=== PATIENT | female | born 1985 | race Caucasian/White ===

== ENCOUNTER → 2020-04-22 | Outpatient (CLI) | payer BC, OTHER ==
[~2020-04-22] MED LIST: BACTRIM DS TAB1 EACH PO; BENADRYL25 MG PO; IBU800 MG PO; KEFLEX500 MG PO; NORCO 5-325 TA1 EACH PO; OMNICEF 300 MG300 MG PO; PHENERGAN 25 MG25 M1 PO; PHENERGAN 50 MG50 MG PR; ZOFRAN ODT 4 MG4 MG PO; ZYVOX600 MG PO
== END ==
LOC: LAB 02:17
DX: N91.2 Amenorrhea, unspecified (principal); R52 Pain, unspecified; Z20.822 Contact with and (suspected) exposure to COVID-19
CPT/HCPCS: 84702; U0002

== ENCOUNTER 2020-05-15 11:07 | Emergency (ER) | payer BC, OTHER ==
[~2020-05-15 11:07] MED LIST changes: -PHENERGAN 25 MG25 M1 PO; -PHENERGAN 50 MG50 MG PR; -ZOFRAN ODT 4 MG4 MG PO
[2020-05-15 12:42] LABS: HEMOGLOBIN 14.8 gm/dl (12.3-15.3); RED BLOOD COUNT 4.91 M/UL (4.00-5.10); WHITE BLOOD COUNT 7.1 K/UL (4.5-11.0)
[2020-05-15 13:03] LABS: BUN/CREATININE RATIO 16 (0-10)
[2020-05-15 13:19] LABS: CAMPYLOBACTER Not Detected (Negative); CLOSTRIDIUM DIFFICILE TOX A/B Not Detected (Negative)
[2020-05-15 13:20] LABS: ADENOVIRUS F 40/41 Not Detected (Negative); ASTROVIRUS Not Detected (Negative); CRYPTOSPORIDIUM Not Detected (Negative); E.COLI 0157 Not Detected (Negative); ENTAMOEBA HISTOLYTICA Not Detected (Negative); ENTEROAGGREGATIVE E.COLI (EAEC Not Detected (Negative); ENTEROPATHOGENIC E.COLI (EPEC) Not Detected (Negative); ENTEROTOXIGENIC E.COLI (ETEC) Not Detected (Negative); GIARDIA LAMBLIA Not Detected (Negative); NOROVIRUS GI/GII Not Detected (Negative); PLESIOMONAS SHIGELLOIDES Not Detected (Negative); ROTOVIRUS A Not Detected (Negative); SALMONELLA Not Detected (Negative); SAPOVIRUS Not Detected (Negative); SHIG/ENTEROINVAS.ECOLI (EIEC) Not Detected (Negative); SHIGA-LIK TOX.PRO.E.COLI (STEC Not Detected (Negative); VIBRIO Not Detected (Negative); VIBRIO CHOLERAE Not Detected (Negative); YERSINIA ENTEROCOLITICA Not Detected (Negative)
[2020-05-15] MEDS ORDERED: PHENERGAN 50 MG50 MG PR (15:10)
[2020-05-15] MEDS ORDERED: ZOFRAN ODT 4 MG4 MG PO (15:10)
[2020-05-15] MEDS ORDERED: PHENERGAN 25 MG25 M1 PO (15:10)
== END 2020-05-15 15:36 | disposition home or self-care (01) ==
LOC: ER1 11:07
PROVIDERS: Family Medicine
DX: R11.2 Nausea with vomiting, unspecified (principal); R19.7 Diarrhea, unspecified; R10.84 Generalized abdominal pain
CPT/HCPCS: 36415; 80053; 81001; 82150; 83690; 84703; 85025; 87507; 96374; 96375; 99284; J1885; J2550

== ENCOUNTER → 2020-11-20 | Day surgery (SDC) | payer BC ==
[~2020-11-20] MED LIST changes: +DOXYCYCLINE HY100 M2 PO; +HYDROCODON-ACE1 EAC4 PO; +IBU600 MG PO; +PHENERGAN 25 MG25 M1 PO; +PHENERGAN 50 MG50 MG PR; +PRENATAL VITAM1 EAC3 PO; +ZOFRAN ODT 4 MG4 MG PO
[2020-11-20 09:27] LABS: HEMOGLOBIN 12.7 gm/dl (12.3-15.3); RED BLOOD COUNT 4.25 M/UL (4.00-5.10); WHITE BLOOD COUNT 6.2 K/UL (4.5-11.0)
== END | disposition home or self-care (01) ==
LOC: OR 06:47
PROVIDERS: Obstetrics & Gynecology
DX: O03.4 Incomplete spontaneous abortion without complication (principal); B37.3 Candidiasis of vulva and vagina; F32.9 Major depressive disorder, single episode, unspecified; F41.9 Anxiety disorder, unspecified; Z20.822 Contact with and (suspected) exposure to COVID-19; Z87.891 Personal history of nicotine dependence
CPT/HCPCS: 36415; 81001; 85025; 86850; 86900; 86901; J1100; J1170; J1885; J2001; J2250; J2370; J2405; J2550; J2704; J2790; J2795; J3010; J7030; J7120; U0002

== ENCOUNTER 2020-11-23 13:16 | Day surgery (SDC) | payer BC ==
[~2020-11-23 13:16] MED LIST changes: -DOXYCYCLINE HY100 M2 PO
[2020-11-23 14:00] LABS: HEMOGLOBIN 13.1 gm/dl (12.3-15.3); RED BLOOD COUNT 4.29 M/UL (4.00-5.10); WHITE BLOOD COUNT 5.7 K/UL (4.5-11.0)
--- NOTE | 2020-11-23 23:02 | NUR ---
VITAL SIGNS: 2050: BP: 116/68 PULSE: 76 RESP. RATE: 16 TEMP: 98.3 O2 SATURATION: 100% RA 2231: BP: 116/68 PULSE: 82 RESP: 18 TEMP: 98.2 02 SATURATION: 97%
== END 2020-11-23 22:48 | disposition home or self-care (01) ==
LOC: OR 13:16 → OB 20:14 → OR 22:48
PROVIDERS: Obstetrics & Gynecology
DX: O03.1 Delayed or excessive hemorrhage following incomplete spontaneous abortion (principal); F32.9 Major depressive disorder, single episode, unspecified; F41.9 Anxiety disorder, unspecified; F51.5 Nightmare disorder; Z20.822 Contact with and (suspected) exposure to COVID-19
CPT/HCPCS: 85025; J1100; J1885; J2001; J2250; J2405; J2704; J3010; J7120

== ENCOUNTER 2020-12-07 15:18 | Emergency (ER) | payer BC ==
[2020-12-07] MEDS ORDERED: DOXYCYCLINE HY100 M2 PO (18:56)
== END 2020-12-07 19:10 | disposition home or self-care (01) ==
LOC: ER1 15:18
DX: J18.9 Pneumonia, unspecified organism (principal); Z20.822 Contact with and (suspected) exposure to COVID-19
CPT/HCPCS: 71045; 99284; U0002